=== PATIENT | female | born 1990 | race American Indian/Alaskan Native ===

== ENCOUNTER 2018-01-16 03:09 | Emergency (ER) | payer MEDICAID | END 2018-01-16 03:20 | disposition left against medical advice (07) | LOC: ED 03:09 | DX: H57.8 Other specified disorders of eye and adnexa (principal); Z53.21 Procedure and treatment not carried out due to patient leaving prior to being seen by health care provider ==

== ENCOUNTER 2021-06-20 23:52 | Inpatient (IN) | payer MEDICAID ==
[2021-06-21] MEDS ORDERED: TERBUTALINE 1 MG/1 ML INJ SUB-Q PRN (01:27)
[2021-06-21] MEDS ORDERED: LIDOCAINE (2%) 20 MG/1 ML VIAL 20 ML MDV INFILTRATI ONE (01:27)
[2021-06-21] MEDS ORDERED: ePHEDrine SULFATE 50 MG/1 ML INJ IV PRN ×2 (01:27→02:40)
[2021-06-21] MEDS ORDERED: METHYLERGONOVINE MALEATE 0.2 MG/ML VIAL IM PRN (01:27)
[2021-06-21] MEDS ORDERED: LOPERAMIDE 2 MG CAP PO PRN (01:27)
[2021-06-21] MEDS ORDERED: miSOPROStol 200 MCG TAB PR PRN (01:27)
[2021-06-21] MEDS ORDERED: OXYTOCIN 10 UNIT/1 ML INJ IM PRN (01:27)
[2021-06-21] MEDS ORDERED: CARBOPROST TROMETHAMINE 250 MCG/1 ML INJ IM PRN (01:27)
[2021-06-21] MEDS ORDERED: MINERAL OIL 30 ML ORAL LIQD PO PRN (01:27)
[2021-06-21 01:29] LABS: Hemoglobin 8.3 gm/dl (10.1-14.3); Mean Corpuscular HGB Conc 33 % (30-34); Mean Corpuscular Volume 91 fl (79-97); Platelet Count 266 K/mm3 (140-440); Red Blood Count 2.75 M/mm3 (3.65-5.03); Red Cell Distribution Width 16.5 % (13.2-15.2)
[2021-06-21 01:43] LABS: Amphetamine Screen,Urine PRESUMPTIVE NEGATIVE; Benzodiazepines Screen,Urine PRESUMPTIVE NEGATIVE; Cannabinoid Screen,Urine PRESUMPTIVE NEGATIVE; Cocaine Screen,Urine PRESUMPTIVE NEGATIVE; Methadone Screen,Urine PRESUMPTIVE NEGATIVE; Opiate Screen,Urine PRESUMPTIVE NEGATIVE
[2021-06-21] MEDS: LACTATED RINGERS 1,000 ML IV SCH ×2 (01:50→05:44)
[2021-06-21] MEDS ORDERED: OXYTOCIN DRIP 30 UNITS/500 ML BAG IV SCH ×2 (02:00)
[2021-06-21] MEDS ORDERED: NALOXONE 2 MG/2 ML INJ IV PRN (02:40)
[2021-06-21] MEDS ORDERED: fentaNYL-BUPIV 2 MCG/ML-0.125% 200 MCG/100 ML BAG EPIDURAL SCH (03:00)
--- NOTE | 2021-06-21 03:25 | Anesthesia Consultation ---
Anesthesia Consult and Med Hx Date of service: 06/21/21 - Airway Anesthetic Teeth Evaluation: Poor ROM Head & Neck: Adequate Mental/Hyoid Distance: Adequate Mallampati Class: Class II Intubation Access Assessment: Probably Good - Pulmonary Exam CTA: Yes - Cardiac Exam Cardiac Exam: RRR - Pre-Operative Health Status ASA Pre-Surgery Classification: ASA3 Proposed Anesthetic Plan: Epidural - Pulmonary Hx Smoking: No Hx Asthma: No Hx Respiratory Symptoms: No SOB: No COPD: No Home Oxygen Therapy: No Hx Pneumonia: No Hx Sleep Apnea: No - Cardiovascular System Hx Hypertension: No - Central Nervous System Hx Seizures: No Hx Psychiatric Problems: No - Endocrine Hx Renal Disease: No Hx End Stage Renal Disease: No Hx Hypothyroidism: No Hx Hyperthyroidism: No - Hematic Hx Anemia: Yes Hx Sickle Cell Disease: No - Other Systems Hx Alcohol Use: No
--- NOTE | 2021-06-21 03:27 | Progress Note ---
Labor Epidural - Labor Epidural Start Time: 02:40 Stop Time: 03:02 Performed by:: MAUREEN CLEMONS Procedure: Patient is requesting epidural for labor pain. H&P and labs reviewed. Procedure explained, questions answered, consent obtained. Patient placed in sitting position with monitors applied. Timeout performed immediately before start of procedure. Prep/drape in usual sterile fashion. Skin localized 3 mL 1% lidocaine at L[3]-L[4] interspace. 17-gauge Touhy epidural needle advanced to KENDRICK with saline at [4] cm. No blood/CSF noted via epidural needle. Epidural catheter advanced to [8] cm. Negative aspiration for blood and CSF via catheter, negative response to test dose 3 ml 1.5% lidocaine w/ epi. Sterile dressing applied followed by tape reinforcement. Patient tolerated procedure well. No immediate complications noted.
[2021-06-21] MEDS ORDERED: ACETAMINOPHEN 325 MG TAB PO ONE (03:52)
[2021-06-21] MEDS ORDERED: BUPIVACAINE/PF (0.25%) 2.5 MG/ML 10 ML VIAL INFILTRATI ONE (04:20)
--- NOTE | 2021-06-21 07:00 | History and Physical Report ---
History of Present Illness Date of examination: 06/21/21 Date of admission: 06/21/21 00:30 Chief complaint: LOF followed by CTX History of present illness: 31 y/o at 38 weeks presents to OBT reporting LOF at 4:00 pm on 06/20/2021. CTX started thereafter. No VB. Good FM. In OBT, SVE was 4 cm. She is admitted in labor. Past History Past Medical History: no pertinent history Past Surgical History: no surgical history Family/Genetic History: none Social history: no significant social history - Obstetrical History Expected Date of Delivery: 07/05/21 Actual Gestation: 38 Week(s) 0 Day(s) : 2 Para: 1 Medications and Allergies Allergies Allergy/AdvReac Type Severity Reaction Status Date / Time No Known Allergies Allergy Unverified 03/22/15 18:55 Home Medications Medication Instructions Recorded Confirmed Last Taken Type No Known Home Medications [No 03/23/15 03/23/15 Unknown History Reported Home Medications] Active Meds: Active Medications Carboprost Tromethamine (Carboprost Tromethamine 250 Mcg/1 Ml Inj) 250 mcg IM ONCE PRN PRN Reason: Uterine Bleeding Ephedrine Sulfate (Ephedrine Sulfate 50 Mg/1 Ml Inj) 10 mg IV Q2M PRN PRN Reason: Hypotension Oxytocin/Sodium Chloride (Pitocin/Ns 30 Unit/500ml) 30 units in 500 mls @ 2 mls/hr IV TITR CHERELLE; Protocol Lactated Ringer's (Lactated Ringers) 1,000 mls @ 125 mls/hr IV DIRECT CHERELLE Last Admin: 06/21/21 05:44 Dose: 125 mls/hr Oxytocin/Sodium Chloride (Pitocin/Ns 30 Unit/500ml) 30 units in 500 mls @ 40 mls/hr IV TITR CHERELLE; Protocol Fentanyl/Bupivacaine/Sodium Chlor (Fentanyl-Bupiv 2 Mcg/Ml-0.125%) 200 mcg in 100 mls @ 12 mls/hr EPIDURAL TITR CHERELLE; Protocol Last Admin: 06/21/21 04:02 Dose: 12 mls/hr Loperamide HCl (Loperamide 2 Mg Cap) 2 mg PO ONCE PRN PRN Reason: give with Hemabate Methylergonovine Maleate (Methylergonovine Maleate 0.2 Mg/Ml Vial) 0.2 mg IM ONCE PRN PRN Reason: Uterine Bleeding Mineral Oil (Mineral Oil 30 Ml Oral Liqd) 30 ml PO QHS PRN PRN Reason: Constipation Misoprostol (Misoprostol 200 Mcg Tab) 800 mcg [place] ONCE PRN PRN Reason: Uterine Bleeding Naloxone HCl (Naloxone 2 Mg/2 Ml Inj) 0.2 mg IV Q5M PRN PRN Reason: Respiratory sedation Oxytocin (Oxytocin 10 Unit/1 Ml Inj) 10 unit IM ONCE PRN PRN Reason: Uterine Bleeding Terbutaline Sulfate (Terbutaline 1 Mg/1 Ml Inj) 0.25 mg SUB-Q ONCE PRN PRN Reason: Hyperstimulation/Hypertonicity Review of Systems All systems: negative - Vital Signs Vital signs: Vital Signs Temp Pulse Resp BP Pulse Ox 98.1 F 88 12 126/70 98 06/21/21 00:21 06/21/21 00:21 06/21/21 00:21 06/21/21 00:06/21/21 00:21 Temp Pulse Resp BP Pulse Ox 98.1 F 87 12 116/52 93 06/21/21 00:06/21/21 06:55 06/21/21 00:06/21/21 06:55 06/21/21 06:55 - Physical Exam Breasts: Positive: normal Cardiovascular: Regular rate Lungs: Positive: Normal air movement Abdomen: Positive: normal appearance Genitourinary (Female): Positive: normal external genitalia Vulva: both: normal Vagina: Positive: normal moisture Uterus: Positive: enlarged Adnexa: both: normal Anus/Rectum: Positive: normal perianal skin Extremities: Positive: normal Deep Tendon Reflex Grade: Normal +2 - Obstetrical FHR: category 1 Uterine Contraction Monitor Mode: External Cervical Dilatation: 4 Results Result Diagrams: 06/21/21 01:10 Abnormal lab results 06/21/21 Range/Units 01:10 WBC 13.3 H (4.5-11.0) K/mm3 RBC 2.75 L (3.65-5.03) M/mm3 Hgb 8.3 L (10.1-14.3) gm/dl Hct 25.0 L (30.3-42.9) % RDW 16.5 H (13.2-15.2) % All other labs normal. Assessment and Plan - Patient Problems (1) 38 weeks gestation of Current Visit: Yes Status: Acute Plan to address problem: care at [facility]. Need records from office. GBS status unknown at this time. Will follow CDC MMWR 2010 guidelines. (2) Labor abnormal Current Visit: Yes Status: Acute Plan to address problem: Admit to L&D. Expectant management for now.
--- NOTE | 2021-06-21 07:01 | Procedure Note ---
OB Delivery Note - Delivery Date of Delivery: 06/21/21 Surgeon: AMERICA EVERETT Estimated blood loss: 300cc - Vaginal Delivery position: OA Intrapartum events: none Delivery induction: none Delivery monitor: external FHT Route of delivery: Delivery placenta: spontaneous Episiotomy: none Delivery laceration: vaginal side wall Delivery repair: vicryl Anesthesia: epidural - A at 1 minute: 8 at 5 minutes: 9 Gender: Male
[2021-06-21] MEDS ORDERED: diphenhydrAMINE 25 MG CAP PO PRN (07:30)
[2021-06-21] MEDS ORDERED: LANOLIN/ZINC/DIMETHICONE (LANSINOH) 7 GM TP PRN (08:00)
[2021-06-21] MEDS ORDERED: PROMETHAZINE 25 MG TAB PO PRN (08:00)
[2021-06-21] MEDS ORDERED: ONDANSETRON 4 MG/2 ML INJ IV PRN (08:00)
[2021-06-21] MEDS ORDERED: PROMETHAZINE 25 MG RECT SUPP PR PRN (08:00)
[2021-06-21] MEDS ORDERED: ACETAMINOPHEN 325 MG TAB PO PRN (08:00)
[2021-06-21] MEDS ORDERED: WITCH HAZEL/ GLYCERIN PAD TP PRN (08:00)
[2021-06-21] MEDS: IBUPROFEN 600 MG TAB PO SCH ×2 (08:44→18:38)
--- NOTE | 2021-06-21 10:38 | Post Anesthesia Evaluation ---
- Post Anesthesia Evaluation Patient Participated: Yes Airway Patent: Yes Stable Respiratory Function: Yes Nausea/Vomiting: No Temp > 96.8F: Yes Pain Manageable: Yes Adequeate Hydration: Yes Anesthesia Complications: No Block Receding Appropriately: Yes Patient on Ventilator: No
[2021-06-21 10:53] LABS: Hematocrit 25.8 % (30.3-42.9); Hemoglobin 8.3 gm/dl (10.1-14.3); Mean Corpuscular HGB Conc 32 % (30-34); Mean Corpuscular Volume 91 fl (79-97); Platelet Count 262 K/mm3 (140-440); Red Blood Count 2.82 M/mm3 (3.65-5.03); Red Cell Distribution Width 16.8 % (13.2-15.2)
[2021-06-21] MEDS ORDERED: MAGNESIUM HYDROXIDE (MOM) ORAL LIQD UDC PO PRN (22:00)
[2021-06-22] MEDS: IBUPROFEN 600 MG TAB PO SCH ×4 (00:07→21:19)
[2021-06-22] MEDS: HYDROcodone/ACETAMINOPHEN 5-325 MG TAB PO PRN ×4 (01:58→21:22)
--- NOTE | 2021-06-22 14:24 | Progress Note ---
Assessment and Plan PPD#1 , Sars Cov2+ doing well; leucocytosis noted 1. Routine care with isolation. 2. Pt told that baby has to be observed for 48hrs per peds therefore no discharge home today 3. Will repeat cbc in am with leucocytosis seen All questions encouraged and answered Subjective Date of service: 06/22/21 Principal diagnosis: PPD#1 , Sars CoV+ Interval history: pt has no complaints except lower back pain intermittent that is relieved with motrin. Denies dysuria. Vag bleed less than a period. Bottle feeding only. Declines control. Pt is ready to go home today. Objective - Constitutional Vitals: Vital Signs - 12hr 06/22/21 06/22/21 08:10 08:40 Temperature 98.1 F Pulse Rate 60 Respiratory 20 Rate Blood Pressure 119/62 O2 Sat by Pulse 98 Oximetry O2 Sat by Pulse 98 Oximetry [ Bilateral] General appearance: Present: no acute distress - Respiratory Respiratory effort: normal - Cardiovascular Rhythm: regular Extremities: No edema - Gastrointestinal General gastrointestinal: Present: soft, non-tender - Genitourinary Female genitourinary: other (Fundus firm 2cm below umbilicus and non-tender; lochia small) - Integumentary Integumentary: warm, dry - Neurologic Neurologic: moves all extremities - Psychiatric Psychiatric: cooperative - Labs CBC & Chem 7: 06/21/21 10:39 Medications & Allergies - Medications Allergies/Adverse Reactions: Allergies No Known Allergies Allergy (Unverified 03/22/15 18:55) Home Medications: Home Medications Medication Instructions Recorded Confirmed Last Taken Type No Known Home Medications [No 03/23/15 03/23/15 Unknown History Reported Home Medications] Active Medications: Generic Name Dose Route Start Last Admin Trade Name Freq PRN Reason Stop Dose Admin Acetaminophen 650 mg 06/21/21 08:00 Acetaminophen 325 Mg Tab PO Q4H PRN Pain MILD(1-3)/Fever >100.5/MG Hydrocodone Bitart/Acetaminophen 2 each 06/21/21 08:00 06/22/21 08:37 Hydrocodone/Acetaminophen 5-325 Mg Tab PO 2 each Q6H PRN Administration Pain, Moderate (4-6) Bisacodyl 10 mg 06/21/21 10:00 Bisacodyl 10 Mg Rect Supp [place] BID PRN Constipation Carboprost Tromethamine 250 mcg 06/21/21 01:27 Carboprost Tromethamine 250 Mcg/1 Ml Inj IM ONCE PRN Uterine Bleeding Diphenhydramine HCl 25 mg 06/21/21 07:30 Diphenhydramine 25 Mg Cap PO Q6H PRN Itching Ephedrine Sulfate 10 mg 06/21/21 02:40 Ephedrine Sulfate 50 Mg/1 Ml Inj IV Q2M PRN Hypotension Oxytocin/Sodium Chloride 30 units in 500 mls @ 2 mls/hr 06/21/21 02:00 Pitocin/Ns 30 Unit/500ml IV TITR CHERELLE Protocol Lactated Ringer's 1,000 mls @ 125 mls/hr 06/21/21 01:30 06/21/21 05:44 Lactated Ringers IV 125 mls/hr DIRECT CHERELLE Administration Oxytocin/Sodium Chloride 30 units in 500 mls @ 40 mls/hr 06/21/21 02:00 Pitocin/Ns 30 Unit/500ml IV TITR CHERELLE Protocol Fentanyl/Bupivacaine/Sodium Chlor 200 mcg in 100 mls @ 12 mls/hr 06/21/21 03:00 06/21/21 04:02 Fentanyl-Bupiv 2 Mcg/Ml-0.125% EPIDURAL 12 mls/hr TITR CHERELLE Administration Protocol Ibuprofen 600 mg 06/21/21 08:00 06/22/21 12:31 Ibuprofen 600 Mg Tab PO 600 mg Q6H CHERELLE Administration Loperamide HCl 2 mg 06/21/21 01:27 Loperamide 2 Mg Cap PO ONCE PRN give with Hemabate Magnesium Hydroxide 30 ml 06/21/21 22:00 Magnesium Hydroxide (Mom) Oral Liqd Udc PO HS PRN Constipation Methylergonovine Maleate 0.2 mg 06/21/21 01:27 Methylergonovine Maleate 0.2 Mg/Ml Vial IM ONCE PRN Uterine Bleeding Mineral Oil 30 ml 06/21/21 01:27 Mineral Oil 30 Ml Oral Liqd PO QHS PRN Constipation Misoprostol 800 mcg 06/21/21 01:27 Misoprostol 200 Mcg Tab [place] ONCE PRN Uterine Bleeding Multi-Ingredient Ointment 1 applic 06/21/21 08:00 06/22/21 10:15 Lanolin/Zinc/Dimethicone (Lansinoh) 7 Gm TP 1 applic PRN PRN Administration Sore Nipples Naloxone HCl 0.2 mg 06/21/21 02:40 Naloxone 2 Mg/2 Ml Inj IV Q5M PRN Respiratory sedation Ondansetron HCl 4 mg 06/21/21 08:00 Ondansetron 4 Mg/2 Ml Inj IV Q8H PRN Nausea And Vomiting Oxytocin 10 unit 06/21/21 01:27 Oxytocin 10 Unit/1 Ml Inj IM ONCE PRN Uterine Bleeding Promethazine HCl 25 mg 06/21/21 08:00 Promethazine 25 Mg Rect Supp [place] Q6H PRN Nausea And Vomiting Promethazine HCl 25 mg 06/21/21 08:00 Promethazine 25 Mg Tab PO Q6H PRN Nausea And Vomiting Sodium Chloride 10 ml 06/21/21 08:00 Sodium Chloride 0.9% 10 Ml Flush Syringe IV 07/01/21 07:59 PRN NR Terbutaline Sulfate 0.25 mg 06/21/21 01:27 Terbutaline 1 Mg/1 Ml Inj SUB-Q ONCE PRN Hyperstimulation/Hypertonicity Witch Maggy/Glycerin 1 each 06/21/21 08:00 Witch Maggy/ Glycerin Pad TP PRN PRN Hemorrhoid/cleansing/soothing
[2021-06-23] MEDS: IBUPROFEN 600 MG TAB PO SCH ×2 (02:26→10:13)
[2021-06-23 05:43] LABS: Hematocrit 24.9 % (30.3-42.9); Hemoglobin 7.9 gm/dl (10.1-14.3); Mean Corpuscular HGB Conc 32 % (30-34); Mean Corpuscular Volume 91 fl (79-97); Platelet Count 298 K/mm3 (140-440); Red Blood Count 2.73 M/mm3 (3.65-5.03); Red Cell Distribution Width 16.7 % (13.2-15.2)
[2021-06-23 06:52] LABS: Basophils % (Manual) 0 % (0.0-1.8); Total Cells Counted 100
[2021-06-23 06:53] LABS: Hypochromasia 3+; Ovalocytes 1+; Platelet Estimate Consistent w Auto
--- NOTE | 2021-06-23 10:51 | Progress Note ---
Assessment and Plan A: day 2 S/P . Anemia. Coronavirus positive (asymptomatic). P: Discharge patient home today. Discussed with patient discharge instructions and warning signs. Advised patient to continue taking her vitamin daily and iron supplement TID at home (Rx for vitamin and Ferrous Sulfate called to [facility] in [place], [place]). Advised patient to self isolate at home for 2 weeks to avoid spreading coronavirus and also to return to hospital promptly if any symptoms develop. Advised patient to avoid in tercourse, lifting, and heavy housework. Advised patient to follow up at [facility] in 2 weeks. Patient voiced understanding of all instructions. Subjective - Subjective Date of service: 06/23/21 Principal diagnosis: PPD#2 , Sars CoV+ Interval history: Patient denies cough, shortness of breath, chest pain, fever or chills. Patient declines chest x-ray. Positive for coronavirus but is asymptomatic. Patient desires discharge home today. Reports small amount of lochia. Patient reports: appetite normal, voiding normally, pain well controlled, flatus, ambulating normally, no dizzy ambulation, no nauseated : doing well Objective - Vital Signs Latest vital signs: Vital Signs Temp Pulse Resp BP BP Pulse Ox Pulse Ox 06/23/21 08:29 97 06/23/21 08:22 98.2 F 58 L 20 132/74 100 06/23/21 00:00 98.8 F 69 16 104/78 06/22/21 22:19 99 06/22/21 21:22 18 06/22/21 21:19 18 98 06/22/21 19:15 98 06/22/21 16:14 98.0 F 78 20 129/81 97 Intake and Output 06/22/21 06/23/21 06/23/21 23:59 07:59 15:59 Intake Total 500 100 Balance 500 100 Intake: Oral 200 100 Intake, Free Water 300 Other: Total, Intake Amount 200 100 # Voids Self-Catheterization 1 Void 1 1 - Exam Cardiovascular: Present: Regular rate, No murmurs Lungs: Present: Clear to auscultation Abdomen: Present: normal appearance, soft, normal bowel sounds. Absent: distention, tenderness, guarding, rigidity Uterus: Present: normal, firm, fundal height below umbilicus. Absent: bogginess, tenderness Extremities: Absent: tenderness - Labs Labs: Abnormal lab results 06/23/21 Range/Units 05:15 WBC 13.6 H (4.5-11.0) K/mm3 RBC 2.73 L (3.65-5.03) M/mm3 Hgb 7.9 L (10.1-14.3) gm/dl Hct 24.9 L (30.3-42.9) % RDW 16.7 H (13.2-15.2) % Seg Neutrophils # Man 9.2 H (1.8-7.7) K/mm3
--- NOTE | 2021-06-23 10:58 | Discharge Summary ---
Providers - Providers Date of Admission: 06/21/21 00:30 Date of discharge: 06/23/21 Attending physician: BLUE BARKLEY Primary care physician: BLUE BARKLEY Hospitalization Reason for admission: rupture of membranes Delivery: Laceration: vaginal side wall Other procedures: none complications: none Discharge diagnosis: IUP at term delivered [place] baby: male Pertinent studies: Labs Hospital course: Hospital course complicated by anemia (asymptomatic; received iron supplementation) and coronavirus positivity (asymptomatic). Condition at discharge: Good Disposition: 01 HOME / SELF CARE / HOMELESS - Discharge Diagnoses (1) Term delivered Status: Acute (2) Anemia Status: Acute Plan - Provider Discharge Summary Activity: routine, no sex for 6 weeks, no heavy lifting 4 weeks, no strenuous exercise Diet: routine Instructions: routine Additional instructions: Continue taking your vitamin daily at home. Take your iron supplement every 8 hours at home. Self isolate at home for 2 weeks to avoid spreading coronavirus; if you develop symptoms, return promptly. Follow up at [facility] in 2 weeks. Call your doctor immediately for: * Fever > 100.5 * Heavy vaginal bleeding ( >1 pad per hour) * Severe persistent headache * Shortness of breath * Reddened, hot, painful area to leg or breast - Follow up plan Follow up: SANDRINE VU CNM [Advanced Practice Nurse] - 14 Days Forms: [facility] Discharge Summary
[2021-06-23] MEDS: HYDROcodone/ACETAMINOPHEN 5-325 MG TAB PO PRN (11:38)
[2021-06-23 14:53] VITALS: BP 137/77
== END 2021-06-23 13:30 | disposition home or self-care (01) | DRG 774 ==
LOC: TRG 23:52 → APU 06-21 00:01 → TRG 06-21 00:30 → OBSVTOIN 06-21 00:30 → LD 06-21 00:30 → OB 06-21 10:08
PROVIDERS: ADMIT Obstetrics & Gynecology; ATTEND Obstetrics & Gynecology
PROC: 10E0XZZ Delivery of Products of Conception, External Approach (ICD-10-PCS; principal; 2021-06-21)
PROC: 0UQGXZZ Repair Vagina, External Approach (ICD-10-PCS; 2021-06-21)
PROC: 3E0R3BZ Introduction of Anesthetic Agent into Spinal Canal, Percutaneous Approach (ICD-10-PCS; 2021-06-21)
PROC: 00HU33Z Insertion of Infusion Device into Spinal Canal, Percutaneous Approach (ICD-10-PCS; 2021-06-21)
DX: O98.52 Other viral diseases complicating childbirth (principal); U07.1 COVID-19; O71.4 Obstetric high vaginal laceration alone; Z3A.38 38 weeks gestation of pregnancy; Z37.0 Single live birth
CPT/HCPCS: 36415; 59025; 80307; 85007; 85025; 85027; 86592; 86706; 86762; 86803; 86850; 86900; 86901; 87806; 99211; G0378; J3490; G0463; J7120; U0003